=== PATIENT | male | born 1990 | race Caucasian/White ===

== ENCOUNTER 2017-05-01 03:36 | Emergency (ER) | payer SELFPAY ==
--- NOTE | 2017-05-01 04:08 | ED CLINICAL REPORT ---
Clinical Report - Physicians/Mid Levels [facility] [address] [place] [place] [address] 05/01/2017 3:36 Patient: ANGELES ROMO Time Seen: 0340; initial patient contact. Arrived- By private vehicle. Historian- patient. HISTORY OF PRESENT ILLNESS Chief Complaint: Injury to the left ring finger. The injury happened today. (unknown). Occurred at home. Patient is experiencing moderate pain. Patient denies injury to the head or neck. No other injury. ( states he can not take off a wedding ring he put on last night. states his finger started to swell. verified being able to take off ring before bed.). REVIEW OF SYSTEMS The patient has had swelling. No tingling, numbness, weakness, foreign body or skin laceration. All systems otherwise negative, except as recorded above. PAST HISTORY See nurses notes. Tetanus immunization status is up-to-date. Problems: no known problems. Medications: None. Allergies: No Known Drug Allergy. SOCIAL HISTORY Never smoker. Alcohol use. History of occasional drug use: marijuana. Is a local resident. ADDITIONAL NOTES The nursing notes have been reviewed. PHYSICAL EXAM Vital Signs: 05/01/2017 03:40 BP: 143/85. HR: 102. RR: 18. O2 saturation: 97%. Temp: 98.2 F. Pain level now: 3/10. Hypertensive. Oxygen saturation normal. Appearance: Alert. Oriented X3. No acute distress. CVS: Normal heart rate and rhythm. Heart sounds normal. Pulses normal. Respiratory: No respiratory distress. Breath sounds normal. Chest nontender. Abdomen: No visible injury. Soft and nontender. Bowel sounds normal. Skin: Skin warm and dry. Skin intact. Extremities: (black metal ring on left 4th digit. mild swelling. no crepitus. no katharina deformity. neurovasc intact. no signs of trauma. rest of the hand and UE atraumatic and non-tender.). Neuro, Vascular and Tendons: Vascular status intact. Sensation intact. Motor intact. Tendon function intact. Neuro: No motor deficit. No sensory deficit. PROGRESS AND PROCEDURES PROCEDURES (ring removed with string. base of the finger wrapped and ring advanced slowly over the PIP joint. no medications needed. patient tolerated well. no complications. procedure performed by Keira Alexandre and directly supervised by me.). Course of Care: ring tourniquet on 4th digit, left. removed with string and wrapping. patient tolerated procedure well. likely contact dermatitis. no signs of injury. finger neurovasc intact. Disposition: Discharged. Condition: good. CLINICAL IMPRESSION 05/01/2017 03:40 BP: 143/85. HR: 102. RR: 18. O2 saturation: 97%. Temp: 98.2 F. Pain level now: 01/03. Hypertensive. Oxygen saturation normal. Essential hypertension. Mild allergic contact dermatitis from metal (left ring finger). acute ring tourniquet of left ring finger. INSTRUCTIONS Warnings: GENERAL WARNINGS: Return or contact your physician immediately if your condition worsens or changes unexpectedly, if not improving as expected, or if other problems arise. Specifically return if pain, vomiting, bleeding, breathing difficulty or fever. Your Current Medications: CONTINUE TAKING THE FOLLOWING MEDICATIONS: None*. OTC Medications: Acetaminophen (available over the counter): take according to label instructions. Motrin (available over the counter): take according to label instructions. Follow-up: Return to the emergency department as needed. Follow up with your doctor in three days. Reason for referral: recheck today's concerns. Summary of care provided to patient via paper. Screening today revealed the patient's blood pressure to be in the normal range. The patient should follow up with a primary care provider for blood pressure management. Understanding of the discharge instructions verbalized by patient. (Electronically signed by Giovanni Castano Dr. 05/01/2017 4:18)
--- NOTE | 2017-05-01 04:08 | ED NURSING NOTES ---
Clinical Report - Nurses [place] [address] [place] [address] 05/01/2017 3:36 Patient: ANGELES ROMO TRIAGE Triage time 03:40. Acuity: LEVEL 4. Chief Complaint: (ring stuck). --03:45 Alis Washington R.N. 03:40 05/01/17. BP: 143/85 taken on the left arm, while lying. HR: 102 (regular and tachycardic). RR: 18 (regular and unlabored). O2 saturation: 97% on room air. Temp: 98.2 F (oral). Pain level now: 01/03. --03:45 Alis Washington R.N. Weight: 65.7 kg stated. Height/Length: 70 inches Per Patient. BMI: 20.8. --03:44 Alis Washington R.N. Medications None. --03:42 Alis Washington R.N. Allergies No Known Drug Allergy. --03:42 Alis Washington R.N. History Arrived by private vehicle. Historian: patient. Patient has a primary care physician. Primary physician (none). Location of injuries: left ring finger. This occurred last night. ( pt reports putting ring on about 530 pm and woke up up feeling uncomfortable,). 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 PAST MEDICAL HX: Tetanus status: up-to-date. Immunizations: up-to-date. SOCIAL HX: Smoker- current status unknown. Alcohol use; consumes five beers a week. History of weekly drug use: marijuana. No infectious disease exposure. ABUSE ASSESSMENT: No report of abuse. SELF HARM ASSESSMENT: A self harm assessment was performed. The patient answered "no" to the question "Have you recently felt down, depressed, or hopeless?", "Have you noticed less interest or pleasure in doing things?", "Do you have thoughts of harming or killing yourself?", "Are you here because you tried to hurt yourself?", "Have you ever tried to hurt yourself before today?", "Have you recently had thoughts about harming or killing others?" and "Do you have any dangerous items in your possession?". --03:45 Alis Washington R.N. PROBLEMS: no known problems. ADDITIONAL SURGERIES: Adenoidectomy. Appendectomy. Tonsillectomy. --03:43 Alis Washington R.N. Interventions ID band on patient. To treatment room. --03:45 Alis Washington R.N. PHYSICAL ASSESSMENT Ambulatory to room. GENERAL / NEURO / PSYCH: Alert. Oriented X 4. Appears in no acute distress. HEENT: Pupils equal, round and reactive to light. Head non-tender. RESPIRATORY: Respirations not labored. Chest nontender. Breath sounds within normal limits. CVS: Normal heart rate and rhythm. Pulses within normal limits. Capillary refill less than 2 seconds. GI / : Abdomen soft and nontender. EXTREMITIES: Extremities exhibit normal ROM. Neuro-vascular status intact to the extremity. SKIN: Skin intact. Skin is warm and dry. --03:45 Alis Washington R.N. EXTREMITIES: Left ring finger: swelling (ring stuck on finger swelling noted). --03:45 Alis Washington R.N. NURSING PROGRESS NOTES Cold pack applied to the left hand. Left hand elevated. Call light placed in reach. Side rails up x 2. --03:46 Alis Washington R.N. Patient ready for evaluation- chart flagged. --03:46 Alis Washington R.N. 03:54 Ring removed successfully, ice bag applied to finger. Ring given back to patient. --03:55 McQuoid, Keira, ER Tech1. DISPOSITION / DISCHARGE Departure time: 0410. Condition at departure: improved and stable. No learning barriers present. Discharge instructions provided and reviewed with the patient. Reviewed skin care instructions (ice to ring finger). Patient verbalized understanding. Written instructions provided in Lebanese. No warning instructions, medication instructions, referrals given to the patient, activity restrictions or note given. No follow up contact number given. The patient was discharged home and unaccompanied at time of discharge. He left the Emergency Department ambulatory and via private vehicle. Patient driving. --04:15 Alis Washington R.N. 04:13 05/01/17. BP: deferred. HR: deferred. RR: deferred. O2 saturation: deferred. Temp: deferred. Pain level now deferred. --04:15 Alis Washington R.N. Locked/Released at 05/01/2017 4:16 by Alis Washington R.N.
--- NOTE | 2017-05-01 04:08 | ED NURSING NOTES ---
Clinical Report - Nurses [place] [address] [place] [address] 05/01/2017 3:36 Patient: ANGELES ROMO TRIAGE Triage time 03:40. Acuity: LEVEL 4. Chief Complaint: (ring stuck). --03:45 Alis Washington R.N. 03:40 05/01/17. BP: 143/85 taken on the left arm, while lying. HR: 102 (regular and tachycardic). RR: 18 (regular and unlabored). O2 saturation: 97% on room air. Temp: 98.2 F (oral). Pain level now: 01/03. --03:45 Alis Washington R.N. Weight: 65.7 kg stated. Height/Length: 70 inches Per Patient. BMI: 20.8. --03:44 Alis Washington R.N. Medications None. --03:42 Alis Washington R.N. Allergies No Known Drug Allergy. --03:42 Alis Washington R.N. History Arrived by private vehicle. Historian: patient. Patient has a primary care physician. Primary physician (none). Location of injuries: left ring finger. This occurred last night. ( pt reports putting ring on about 530 pm and woke up up feeling uncomfortable,). 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 PAST MEDICAL HX: Tetanus status: up-to-date. Immunizations: up-to-date. SOCIAL HX: Smoker- current status unknown. Alcohol use; consumes five beers a week. History of weekly drug use: marijuana. No infectious disease exposure. ABUSE ASSESSMENT: No report of abuse. SELF HARM ASSESSMENT: A self harm assessment was performed. The patient answered "no" to the question "Have you recently felt down, depressed, or hopeless?", "Have you noticed less interest or pleasure in doing things?", "Do you have thoughts of harming or killing yourself?", "Are you here because you tried to hurt yourself?", "Have you ever tried to hurt yourself before today?", "Have you recently had thoughts about harming or killing others?" and "Do you have any dangerous items in your possession?". --03:45 Alis Washington R.N. PROBLEMS: no known problems. ADDITIONAL SURGERIES: Adenoidectomy. Appendectomy. Tonsillectomy. --03:43 Alis Washington R.N. Interventions ID band on patient. To treatment room. --03:45 Alis Washington R.N. PHYSICAL ASSESSMENT Ambulatory to room. GENERAL / NEURO / PSYCH: Alert. Oriented X 4. Appears in no acute distress. HEENT: Pupils equal, round and reactive to light. Head non-tender. RESPIRATORY: Respirations not labored. Chest nontender. Breath sounds within normal limits. CVS: Normal heart rate and rhythm. Pulses within normal limits. Capillary refill less than 2 seconds. GI / : Abdomen soft and nontender. EXTREMITIES: Extremities exhibit normal ROM. Neuro-vascular status intact to the extremity. SKIN: Skin intact. Skin is warm and dry. --03:45 Alis Washington R.N. EXTREMITIES: Left ring finger: swelling (ring stuck on finger swelling noted). --03:45 Alis Washington R.N. NURSING PROGRESS NOTES Cold pack applied to the left hand. Left hand elevated. Call light placed in reach. Side rails up x 2. --03:46 Alis Washington R.N. Patient ready for evaluation- chart flagged. --03:46 Alis Washington R.N. 03:54 Ring removed successfully, ice bag applied to finger. Ring given back to patient. --03:55 McQuoid, Keira, ER Tech1. DISPOSITION / DISCHARGE Departure time: 0410. Condition at departure: improved and stable. No learning barriers present. Discharge instructions provided and reviewed with the patient. Reviewed skin care instructions (ice to ring finger). Patient verbalized understanding. Written instructions provided in Taiwanese. No warning instructions, medication instructions, referrals given to the patient, activity restrictions or note given. No follow up contact number given. The patient was discharged home and unaccompanied at time of discharge. He left the Emergency Department ambulatory and via private vehicle. Patient driving. --04:15 Alis Washington R.N. 04:13 05/01/17. BP: deferred. HR: deferred. RR: deferred. O2 saturation: deferred. Temp: deferred. Pain level now deferred. --04:15 Alis Washington R.N. Locked/Released at 05/01/2017 4:16 by Alis Washington R.N.
--- NOTE | 2017-05-01 04:18 | ED MED RECONCILIATION SUMMARY ---
Patient: ANGELES ROMO Medication Reconciliation Report [facility] VisitID: [id number] [address] [place] [address] 27y, M Registration Date/Time: 05/01/2017 Weight: 65.7 kg Height/Length: 70 in. BMI: 20.8 ALLERGIES: No Known Drug Allergy The patient's Home Medications are listed below: NONE. The source(s) of the original Home Medication information: Not obtained. The following Medications were given to the patient in the Emergency Department: None. The following Medications were prescribed to the patient: Acetaminophen (available over the counter): take according to label instructions. -- Giovanni Castano Dr. Motrin (available over the counter): take according to label instructions. -- Giovanni Castano Dr.
--- NOTE | 2017-05-01 04:18 | ED MAR SUMMARY ---
..... Medication Administration Record [facility] [address] [place], [place] [id number] Patient: ANGELES ROMO Visit ID: [id number] 27y, M Weight: 65.7 kg Height/Length: 70 in BMI: 20.8 ALLERGIES: No Known Drug Allergy
--- NOTE | 2017-05-01 04:18 | ED MED RECONCILIATION SUMMARY ---
Patient: ANGELES ROMO Medication Reconciliation Report [facility] VisitID: [id number] [address] [place] [address] 27y, M Registration Date/Time: 05/01/2017 Weight: 65.7 kg Height/Length: 70 in. BMI: 20.8 ALLERGIES: No Known Drug Allergy The patient's Home Medications are listed below: NONE. The source(s) of the original Home Medication information: Not obtained. The following Medications were given to the patient in the Emergency Department: None. The following Medications were prescribed to the patient: Acetaminophen (available over the counter): take according to label instructions. -- Giovanni Castano Dr. Motrin (available over the counter): take according to label instructions. -- Giovanni Castano Dr.
--- NOTE | 2017-05-01 04:18 | ED DISCHARGE INSTRUCTIONS ---
Patient: ANGELES ROMO General Instructions [facility] VisitID: [id number] [address] [place] [address] 27y, M Registration Date/Time: 05/01/2017 05/01/2017 03:40 BP: 143/85. HR: 102. RR: 18. O2 saturation: 97%. Temp: 98.2 F. Pain level now: 310. Hypertensive. Oxygen saturation normal. Essential hypertension. Mild allergic contact dermatitis from metal (left ring finger). acute ring tourniquet of left ring finger. INSTRUCTIONS Warnings: GENERAL WARNINGS: Return or contact your physician immediately if your condition worsens or changes unexpectedly, if not improving as expected, or if other problems arise. Specifically return if pain, vomiting, bleeding, breathing difficulty or fever. Your Current Medications: CONTINUE TAKING THE FOLLOWING MEDICATIONS: None*. OTC Medications: Acetaminophen (available over the counter): take according to label instructions. Motrin (available over the counter): take according to label instructions. Follow-up: Return to the emergency department as needed. Follow up with your doctor in three days. Reason for referral: recheck today's concerns. Summary of care provided to patient via paper. Screening today revealed the patient's blood pressure to be in the normal range. The patient should follow up with a primary care provider for blood pressure management. Understanding of the discharge instructions verbalized by patient. ADDITIONAL INFORMATION High Blood Pressure -- To Be Confirmed [No Tx] Your blood pressure was higher today than normal. Sometimes anxiety or pain can cause a temporary rise in blood pressure that later returns to normal. If your blood pressure is high on one measurement, this does not mean that you have hypertension (a chronic illness). However, you must have your blood pressure measured again within the next few days to find out if its still high. A normal blood pressure is 120/80 or less. The first (top) number is the "systolic" pressure. The second (bottom) number is the "diastolic" pressure. Hypertension exists when either the top number is 140 or higher, OR the bottom number is 90 or higher on repeated measurements. Blood pressure in the range of 120-140 (systolic) or 80-89 (diastolic) is considered "pre-hypertension". This means your are at risk for getting hypertension. You should have regular blood pressure checks to be sure your blood pressure is not rising. Home Care: Measure your blood pressure on 3 different days and write down the results. This can be done at your doctor's office or this facility. Some pharmacies and grocery stores offer automated blood pressure machines for your use. Follow Up: If your blood pressure is "high" (over 120/80) on 2 out of 3 days, you will need to follow up with your doctor for further evaluation and treatment. DO NOT PUT THIS OFF! Untreated high blood pressure increases the risk for heart attack, also known as acute myocardial infarction, or AMI, and stroke. It is a treatable condition. Get Prompt Medical Attention if any of the following occur: Chest pain or shortness of breath Severe headache Throbbing or rushing sound in the ears Nosebleed Sudden severe abdominal pain Extreme drowsiness, confusion or fainting Dizziness or vertigo (dizziness with spinning sensation) Weakness of an arm or leg or one side of the face Difficulty with speech or vision Dermatitis (Non-Specific) Dermatitis is an inflammation of the skin. The exact cause of your rash is not certain. However, this rash does not appear to be an infection or contagious illness. Taking care of the rash at home should help relieve your symptoms. Home Care: Keep the areas of rash clean by washing it daily. This also helps to keep the skin moist. Use a neutral pH soap such as Dove or Lever 2000. Apply a moisturizing lotion after bathing to prevent dry skin. Avoid skin irritants (wool or silk clothing, grease, oils, some medicines, harsh soaps, and detergents). Wear absorbent, soft fabrics next to the skin rather than rough or scratchy materials. Unless another medicine was prescribed, you may use Hydrocortisone cream (which you can get without a prescription) to reduce the inflammation. Follow Up: Make an appointment with your doctor in the next 1 to 2 weeks if your symptoms do not improve with the above measures. Get Prompt Medical Attention if any of the following occur: Increasing area of redness or pain in the skin Yellow crusts or drainage from the rash Joint pain New rash that appears in other areas of the body Fever of 100.4F (38C) or higher, or as directed by your healthcare provider You have been given the following additional information: Hypertension, To Be Confirmed Dermatitis, Non-Specific (Electronically signed by Giovanni Castano Dr. 05/01/2017 4:18)
--- NOTE | 2017-05-01 04:18 | ED MAR SUMMARY ---
..... Medication Administration Record [facility] [address] [place], [place] [id number] Patient: ANGELES ROMO Visit ID: [id number] 27y, M Weight: 65.7 kg Height/Length: 70 in BMI: 20.8 ALLERGIES: No Known Drug Allergy
== END 2017-05-01 04:10 | disposition home or self-care (01) ==
LOC: ED SRH 03:36
DX: S60.445A External constriction of left ring finger, initial encounter (principal); W49.04XA Ring or other jewelry causing external constriction, initial encounter; Y93.89 Activity, other specified; Y92.019 Unspecified place in single-family (private) house as the place of occurrence of the external cause; L23.0 Allergic contact dermatitis due to metals; I10 Essential (primary) hypertension